=== PATIENT | female | born 1945 | race Caucasian/White ===

== ENCOUNTER 2025-07-10 12:46 | Day surgery (SDC) | payer MEDICARE ==
[2025-07-10] MEDS ORDERED: LIDOCAINE HCL 1% 50 MG/5 ML VL IJ ONE (12:47)
[2025-07-10] MEDS ORDERED: Sodium Chloride 0.9(Preservative Free) 10 ML IJ ONE (12:47)
[2025-07-10] MEDS ORDERED: propofoL IV ONE (15:13)
[2025-07-10] MEDS ORDERED: Lactated Ringers 1,000 ML IV ONE (15:49)
--- NOTE | 2025-07-10 17:08 | XRAY ---
Indication: Left L4-S1 transforaminal DAISY. Intraoperative fluoroscopy provided for 27 seconds. 4 digital spot images submitted for interpretation demonstrates posterior needle tips projecting over expected left L4 and L5 nerve roots. Small amount of contrast injected for needle tip placement. Correlate with intraoperative findings/report.
--- NOTE | 2025-07-10 17:10 | XRAY ---
Indication: Left piriformis injection. Intraoperative fluoroscopy provided for 5 seconds. 2 digital spot images submitted for interpretation demonstrates posterior needle tip projecting over expected left piriformis. Small amount of contrast injected for needle tip placement. Correlate with intraoperative findings/report.
--- NOTE | 2025-07-11 09:00 | XRAY ---
27 seconds of fluoroscopy were used in surgery for a left L4-S1 transforaminal DAISY.
--- NOTE | 2025-07-11 09:01 | XRAY ---
5 seconds of fluoroscopy were used in surgery for a left piriformis muscle injection.
== END 2025-07-10 15:50 | disposition home or self-care (01) ==
LOC: SDC-PAIN 12:46
PROVIDERS: ATTEND Psychiatry & Neurology Pain Medicine
DX: M54.16 Radiculopathy, lumbar region (principal); M79.18 Myalgia, other site